=== PATIENT | female | born 1990 | race Caucasian/White ===

== ENCOUNTER 2019-01-03 22:49 | Inpatient (IN) | payer BC ==
[2019-01-03] MEDS ORDERED: Ondansetron 4 MG/2 ML SDV IV PRN (23:27)
[2019-01-03] MEDS ORDERED: Methylergonovine 0.2 MG/1 ML Amp IM PRN (23:27)
[2019-01-03] MEDS ORDERED: Tranexamic Acid 1,000 MG in Sodium Chloride 0.9% 100 ML IV PRN (23:27)
[2019-01-03] MEDS ORDERED: Acetaminophen 325 MG Tab PO PRN (23:27)
[2019-01-03] MEDS ORDERED: Misoprostol 400 MCG (4 X 100 MCG TAB) RECTAL PRN (23:27)
[2019-01-03] MEDS ORDERED: Lactated Ringers 500 ML IV ONE (23:27)
[2019-01-03] MEDS ORDERED: Lidocaine 1% 30 ML SDV INJECT PRN (23:27)
[2019-01-03] MEDS ORDERED: Sodium Chloride 0.9% 10 ML Syringe FLUSH PRN (23:27)
[2019-01-03] MEDS ORDERED: Carboprost Tromethamine 250 MCG/1 ML Amp IM PRN (23:27)
[2019-01-03] MEDS ORDERED: Oxytocin/Normal Saline 30 UNIT/500 ML BAG IV SCH (23:30)
[2019-01-03] MEDS ORDERED: Lactated Ringers 1,000 ML IV SCH (23:30)
[2019-01-04] MEDS ORDERED: Ketorolac 30 MG/ML SDV IVPUSH ONE (01:14)
[2019-01-04] MEDS ORDERED: Carboprost Tromethamine 250 MCG/1 ML Amp IM PRN (01:18)
[2019-01-04] MEDS ORDERED: Misoprostol 400 MCG (4 X 100 MCG TAB) RECTAL PRN (01:18)
[2019-01-04] MEDS ORDERED: Benzocaine/Menthol 20%-0.5% Spray 56 GM Canister TOP PRN (01:18)
[2019-01-04] MEDS ORDERED: Sodium Chloride 0.9% 10 ML Syringe FLUSH PRN (01:18)
[2019-01-04] MEDS ORDERED: Zolpidem 5 MG Tab PO PRN (01:18)
[2019-01-04] MEDS ORDERED: Simethicone 80 MG Tab.Chew PO PRN (01:18)
[2019-01-04] MEDS ORDERED: Oxytocin 10 Units/1 ML SDV IM PRN (01:18)
[2019-01-04] MEDS ORDERED: Tranexamic Acid 1,000 MG in Sodium Chloride 0.9% 100 ML IV PRN (01:18)
[2019-01-04] MEDS ORDERED: Acetaminophen 325 MG Tab PO PRN (01:18)
--- NOTE | 2019-01-04 01:52 | HP ---
CHIEF COMPLAINT: Increasing frequency and intensity of contractions. SUBJECTIVE: HISTORY OF PRESENT ILLNESS: The patient is a 28-year-old 2, para 1 female, presenting at 39 weeks 5 days' gestation with increasing intensity and frequency of contractions. The patient states that at 8:30 p.m., she started noticing contractions. They came on suddenly and have been occurring about every 2 to 3 minutes. The patient states that she has to stop and start to breathe through them, and they have just continued to increase from there. The patient endorses active movement and denies leakage of fluid or vaginal bleeding at this time. The patient does endorse that she has been having some mucousy discharge for the past 2 days and believes this is a mucus plug. The patient has no other symptoms of concern at this time. She denies symptoms of preeclampsia including headache, blurred vision, dizziness, or lightheadedness. PAST MEDICAL HISTORY: The patient denies significant past medical history. PAST : First included a term male infant, born at 39 weeks 4 days' gestation via spontaneous vaginal delivery. A mild shoulder dystocia did occur during that delivery. The patient was 8 pounds 11 ounces. Delivery occurred 2-1/2 years ago. PAST SURGICAL HISTORY: None. FAMILY HISTORY: The patient's family history is positive for type 2 diabetes in the family. The patient's grandmother was also diagnosed with breast cancer in her 80s. SOCIAL HISTORY: The patient originally resided in [place], [place], and recently moved with her , Woodrow, and 1 child to [place], [place]. They are in transition to moving between [place] and [place]. They work as missionaries. Woodrow's medical history is significant for a heart murmur diagnosed at . He has had this worked up as a child with no concerns. REVIEW OF SYSTEMS: Pertinent review of systems stated in HPI. OBJECTIVE: Vital Signs: Temperature 97.7, BP 119/62, and HR 100 beats per minute. General: Awake, alert, lying in bed, in distress due to contractions. HEENT: Grossly normal. Pulmonary: Lungs are clear to auscultation bilaterally. Cardiovascular: Regular rate and rhythm. No murmurs noted. Abdomen: Soft, gravid uterus present. Uterus palpated 21 cm above umbilicus. Cervical: The patient was noted to be 8 cm dilated, 60% effaced, and -1 station. Bulging bag present. Extremities: Trace pedal edema noted bilaterally. No tenderness to palpation of calves bilaterally. Neurologic: Grossly normal. NONSTRESS TEST: Report: Baseline heart rate 130 bpm, reactive. [place]: Contractions noted every 1 to 4 minutes. Interpretation: Category 1 strip. ASSESSMENT: The patient is a 28-year-old 2, para 1 female, presenting in active labor at 39 weeks 5 days' gestation. Anticipate normal progression of her expected progression of labor. PLAN: 1. Initiate routine labor cares. 2. Plans on . 3. Requests no pain medications at this time. The patient was seen and evaluated today by myself and Dr. Sary Ceja. Assessment and plan is under advisement of Dr. Ceja. -Martha Gonzalez, MS-III [facility] /[id number] Patient was personally seen and examined with the medical student. I reviewed the noted scribed on my behalf and necessary changes have been made to reflect my opinion on the history, exam, assessment, and plan. Sary Ceja MD [facility] CENTERMark Anthony
[2019-01-04] MEDS ORDERED: [UNRECOGNIZED DRUG - REMARK] PO SCH (09:00)
[2019-01-04] MEDS: Ibuprofen 800 MG Tab PO PRN ×2 (09:43→22:16)
[2019-01-04] MEDS: Docusate Sodium 100 MG Cap PO PRN ×2 (09:44→22:15)
[2019-01-04] MEDS: Prenatal Multivitamin with Calcium/Folic Acid/Iron Tab PO SCH (09:44)
--- NOTE | 2019-01-04 19:20 | DEL ---
DATE: 01/04/2019 PREPROCEDURE DIAGNOSES: 1. A 39 weeks 6 days' intrauterine . 2. 2, para 1. 3. Rh negative, rubella immune, group B streptococcus negative. 4. History of spontaneous vaginal delivery with mild shoulder dystocia at 39 weeks 4 days' gestation. POSTPROCEDURE DIAGNOSES: 1. A 39 weeks 6 days' intrauterine . 2. 2, para 1. 3. Rh negative, rubella immune, group B streptococcus negative. 4. History of spontaneous vaginal delivery with mild shoulder dystocia at 39 weeks 4 days' gestation. 5. Delivery of a term male via spontaneous vaginal delivery. scores of 8 and 9 at 1 and 5 minutes respectively. weight 8 pounds 11.5 ounces. BRIEF HISTORY: The patient is a 28-year-old 2, para 1 female, who presented to Labor and Delivery in active labor at 39 weeks 5 days' gestation. On admission, the patient denied leakage of fluid or vaginal bleeding. The patient does endorse active movement and increasing intensity and frequency of contractions. The patient states that her contractions began around 2030 and initiating at 2-3 minutes apart with progression of intensity and frequency of contractions. The patient also states she believes she lost her "mucous plug" 2 days prior. The patient states she feels most of her contractions in her lower pelvis and abdomen. Denies any symptoms of preeclampsia including headache, changes in vision, blurred vision, lightheadedness, or dizziness. The patient endorses very mild lower extremity edema. The patient denies any concerns at this time. The patient also wished for a natural delivery with no pain medication or anesthesia. Labor course was brief. The patient was checked at admission around 2300 and was noted to be 8 cm dilated, 60% effaced, -1 station. The patient was then brought to Labor and Delivery room for expectant management of progression of labor. The patient was checked again at 2357 with increased pressure at that time with bulging bag was felt. Artificial rupture of membranes occurred at that time. Clear fluid noted on exam. The patient again felt the urge to push around 0015, was checked at this time, and was noted to have a rim. The patient was then allowed to labor down until cervix had completely dilated. With increasing pressure in the pelvic region, the patient was placed in the dorsal lithotomy position for expectant management of labor. DESCRIPTION OF PROCEDURE: The patient felt the extreme urge to push at 0020 hours. The patient was coached through pushing in total of 7 contractions with 1 period of rest in between toward the beginning of the contraction cycle. With successful pushing during contractions, fetus presented in the MILAN position over an intact perineum. Time of was 0035 hours. Baby was bulb suctioned, stimulated, and placed on mother's chest for initiation of bonding. Body cord x1 draped around shoulders was bluntly reduced upon delivery. A 3-vessel umbilical cord was clamped and cut after a delayed period to allow for cessation of umbilical cord pulsation. With the use of gentle cord traction and concomitant uterine massage, delivery of placenta occurred at 0056 hours. Upon delivery, placenta was inspected and noted to be intact. After delivery of placenta, the labia and vaginal chiu were inspected and a second-degree vaginal laceration was noted. 5 mL of Xylocaine 1% plain was drawn and used to numb the perineum and the laceration was subsequently repaired without complications. The repair was noted to be hemostatic upon finishing of sutures and no concerns were noted. COMPLICATIONS: None. FINDINGS: A viable term male infant with scores of 8 and 9 at 1 and 5 minutes respectively. weight was noted to be 8 pounds 11.5 ounces. ESTIMATED BLOOD LOSS: 450 mL. DISPOSITION: Mother and baby to stay in delivery room at this time to initiate bonding and . ASSESSMENT: The patient is doing well post spontaneous vaginal delivery of a term male . The patient was having extensive uterine contractions and given 30 mg IV Toradol for pain management post delivery. No other concerns at this time. PLAN: 1. Initiate routine cares. 2. . 3. Baby is to remain with mother and father as much as possible to initiate and bonding. Procedure was completed today by myself and Dr. Sary Ceja. Assessment and plan is under the advisement of Dr. Ceja. -Martha Gonzalez MS-III [facility] /[id number] Patient was personally seen and examined with the medical student. I reviewed the noted scribed on my behalf and necessary changes have been made to reflect my opinion on the history, exam, assessment, and plan. Sary Ceja MD [facility]
[2019-01-05] MEDS: Ibuprofen 800 MG Tab PO PRN (08:57)
[2019-01-05] MEDS: Docusate Sodium 100 MG Cap PO PRN (08:58)
[2019-01-05] MEDS: Prenatal Multivitamin with Calcium/Folic Acid/Iron Tab PO SCH (08:58)
--- NOTE | 2019-01-05 11:40 | DISCH ---
ADMITTING DIAGNOSES: 1. 39-week 6-day gestation intrauterine . 2. 2, para 1-0-0-1. 3. Rh negative, rubella immune, group B strep negative. 4. History of spontaneous vaginal delivery with mild shoulder dystocia at 39 weeks' 4 days' gestation with delivery of a term male infant. DISCHARGE DIAGNOSES: 1. 39-week 6-day gestation intrauterine . 2. 2, para 1-0-0-1. 3. Rh negative, rubella immune, group B strep negative. 4. History of spontaneous vaginal delivery with mild shoulder dystocia at 39 weeks' 4 days' gestation with delivery of a term male . 5. Delivery of a term male infant via spontaneous vaginal delivery. scores were 8 and 9 at one and five minutes respectively. weight was 8 pounds 11.5 ounces (3955 g). BRIEF HISTORY: The patient is a 28-year-old 2, para 1-0-0-1 female, who presented to Labor and Delivery in active labor at 39 weeks' 5 days' gestation. On admission, the patient denied leakage of fluid or vaginal bleeding and endorsed active movement. The patient stated that she had been experiencing increasing intensity and frequency of contractions around 2030 and experiencing them about 2-3 minutes apart. The patient denies symptoms of preeclampsia including headache, change in vision, blurred vision, lightheadedness, or dizziness. The patient endorsed mild lower extremity edema. The patient wished for natural delivery with no pain medication or anesthesia. Labor course was brief as the patient was checked on admission and noted to be 8 cm dilated, 60% effaced, -1 station. The patient was admitted and monitored for expectant progression of labor. Artificial rupture of membranes occurred at 2357 with clear fluid noted on exam. The patient then again felt the urge to push around 0015, was checked at that time and noted to have a rim, allowed to labor down until cervix had completely dilated, and at 0020 hours, the patient was coached to pushing and pushed for a total of 7 contractions with 1 period of rest in between. With successful pushing, fetus presented in the MILAN position over an intact perineum. Time of was 0035 hours. Baby was bulb suctioned, stimulated, and placed on mother's chest to initiate bonding. Nuchal cord x1 draped around the shoulders was bluntly reduced upon delivery. Three- vessel umbilical cord was clamped and cut after delayed period to allow for cessation of cord pulsation. Use of gentle cord traction and concomitant uterine massage produced delivery of placenta around 0056 hours. Upon delivery, the labia and vagina were inspected and noted to have a second-degree vaginal laceration. This was repaired with 5 mL of Xylocaine 1% plain and suture. The perineum was repaired without complications and repair was noted to be hemostatic. Please see history and physical/delivery note for further details. HOSPITAL COURSE: Good. The patient has done well in state. She has been ambulating, tolerating general diet, urinating, and stooling appropriately. The patient does feel sore, especially with . This is expected, and the patient has no concerns. She wishes for discharge home at this time. DISCHARGE CONDITION: Good. DISCHARGE PHYSICAL EXAMINATION: Vital Signs: Temperature 98.4, HR 80 beats per minute, BP 116/57, RR 16 breaths per minute, and oxygen saturation 98% on room air. General: The patient is awake, alert, lying in bed, in no acute distress. HEENT: Grossly normal. Pulmonary: Lungs are clear to auscultation bilaterally with no increased work of breathing noted. Cardiovascular: Regular rate and rhythm. No murmurs noted. Abdomen: Soft. Mildly tender to palpation. Normoactive bowel sounds auscultated. Firm uterine fundus palpated at the level of umbilicus. Extremities: Trace pedal edema noted bilaterally. No tenderness to palpation of calves bilaterally. Neurologic: Grossly normal. DISCHARGE LABORATORY RESULTS: Hematology; WBC 10.8, RBC 3.81, hemoglobin 11.7, hematocrit 34.5, and platelet count 132. DISCHARGE MEDICATIONS: None prescribed. The patient was encouraged to continue her routine vitamins as well as [id number] pain medications including Tylenol and ibuprofen as needed for pain and swelling. DISPOSITION: Home with family. FOLLOWUP: The patient was seen and advised to see Dr. Sary Ceja for 6- week followup in clinic. The patient was advised to call the clinic to schedule this appointment. She is also encouraged to attend baby's first well-child check on 01/10/2019. If any questions or concerns arise prior to that visit, mother is encouraged to call either the clinic or Labor and Delivery. The patient was seen and evaluated today by myself and Dr. Sary Ceja. Assessment and plan are under advisement of Dr. Ceja. [facility] /[id number] Patient was personally seen and examined with the medical student. I reviewed the noted scribed on my behalf and necessary changes have been made to reflect my opinion on the history, exam, assessment, and plan. Sary Ceja MD [facility]
== END 2019-01-05 18:05 | disposition home or self-care (01) | DRG 560 ==
LOC: DL.OBCHECK 22:49 → DL.OB 23:27 → UNDOADMOB 23:34 → DL.OB 23:34 → OBSVTOIN 01-04 00:35
PROVIDERS: ADMIT Family Medicine; ATTEND Family Medicine
PROC: 10E0XZZ Delivery of Products of Conception, External Approach (ICD-10-PCS; principal; 2019-01-04)
PROC: 4A1HXCZ Monitoring of Products of Conception, Cardiac Rate, External Approach (ICD-10-PCS; 2019-01-04)
PROC: 10907ZC Drainage of Amniotic Fluid, Therapeutic from Products of Conception, Via Natural or Artificial Opening (ICD-10-PCS; 2019-01-04)
PROC: 0KQM0ZZ Repair Perineum Muscle, Open Approach (ICD-10-PCS; 2019-01-04)
DX: O70.1 Second degree perineal laceration during delivery (principal); Z3A.39 39 weeks gestation of pregnancy; Z37.0 Single live birth; O69.81X0 Labor and delivery complicated by cord around neck, without compression, not applicable or unspecified
CPT/HCPCS: 36415; 59409; 85027; 85461; 86850; 86900; 86901; A9270-GY; J1885; J2001; J2590; J2790; J7120

== ENCOUNTER 2021-07-19 13:21 | Emergency (ER) | payer SELFPAY ==
[2021-07-19 15:04] LABS: CORONAVIRUS COVID-19 NAA NEGATIVE (NEGATIVE)
--- NOTE | 2021-07-19 15:39 | EDM.PDOC ---
ED HPI GENERAL MEDICAL PROBLEM - General Chief Complaint: General Stated Complaint: WANTS TEST FOR STREP THROAT / TEMP 96.7 Time Seen by Provider: 07/19/21 14:20 Source of Information: Reports: Patient, RN, RN Notes Reviewed History Limitations: Reports: No Limitations - History of Present Illness INITIAL COMMENTS - FREE TEXT/NARRATIVE: Pt presents to ER with c/o several days of sore throat. On the first couple of days of symptoms pt reports having fevers. Last night her right eye became irritated and she woke with yellow matting. Denies cough, N/V/D, or rash. Onset: Sudden Duration: Constant Location: Reports: Other (EENT) Quality: Reports: Ache Severity: Moderate Improves with: Reports: None Worsens with: Reports: None Associated Symptoms: Reports: No Other Symptoms - Related Data Allergies Allergy/AdvReac Type Severity Reaction Status Date / Time No Known Allergies Allergy Verified 07/19/21 14:14 Home Meds: Home Meds #103/Iron Fumarate/Fa [ ] 1 tab PO DAILY 01/04/19 [History] Past Medical History - Past Health History Medical/Surgical History: Denies Medical/Surgical History [employer] History: Reports: Social & Family History - Family History Family Medical History: No Pertinent Family History - Tobacco Use Tobacco Use Status *Q: Never Tobacco User - Caffeine Use Caffeine Use: Reports: None - Recreational Drug Use Recreational Drug Use: No - Living Situation & Occupation Living situation: Reports: , with Family ED ROS GENERAL - Review of Systems Review Of Systems: Comprehensive ROS is negative, except as noted in HPI. ED EXAM, GENERAL - Physical Exam Exam: See Below Exam Limited By: No Limitations General Appearance: Alert, WD/WN, No Apparent Distress Eye Exam: Right Eye: Other (Rt conjunctival injection with yellow matting), Bilateral Eye: EOMI, PERRL Ears: Normal External Exam, Normal Canal, Hearing Grossly Normal, Normal TMs Nose: Nasal Drainage Throat/Mouth: Normal Lips, Normal Voice, No Airway Compromise, Other (Moderate tonsillar swelling with erythema and exudates) Head: Atraumatic, Normocephalic Neck: Non-Tender, Full Range of Motion, Other ([place]oddy cervical lymphadenopathy) Respiratory/Chest: No Respiratory Distress, Lungs Clear, Normal Breath Sounds, No Accessory Muscle Use, Chest Non-Tender Cardiovascular: Regular Rate, Rhythm Neurological: Alert, Oriented, No Motor/Sensory Deficits Psychiatric: Normal Mood Skin Exam: Warm, Dry, Intact, Normal Color, No Rash Course - Vital Signs Last Recorded V/S: Last Vital Signs Temp 98 F 07/19/21 14:11 Pulse Resp BP Pulse Ox - Orders/Labs/Meds Orders: Active Orders 24 hr Category Date Time Status CULTURE STREP A CONFIRMATION [] Stat Lab 07/19/21 13:40 Results STREP SCRN A RAPID W CULT CONF [] Stat Lab 07/19/21 13:40 Results Labs: Laboratory Tests 07/19/21 Range/Units 13:40 Influenza Type A RNA Negative (NEGATIVE) Influenza Type B RNA Negative (NEGATIVE) SARS-CoV-2 RNA (FAITH) Negative (NEGATIVE) Meds: Medications Discontinued Medications Generic Name Dose Route Start Last Admin Trade Name Freq PRN Reason Stop Dose Admin Azithromycin 500 mg 07/19/21 15:45 Azithromycin 250 Mg Tab PO 07/19/21 15:46 ONETIME ONE Gentamicin Sulfate 1 ml 07/19/21 15:46 Gentamicin 0.3% Ophth Soln 5 Ml Bottle EYERT 07/19/21 15:47 ONETIME ONE Departure - Departure Time of Disposition: 15:47 Disposition: Home, Self-Care 01 Condition: Good Clinical Impression: Bacterial conjunctivitis of right eye Acute tonsillitis Qualifiers: Pharyngitis/tonsillitis etiology: other specified organisms Qualified Code(s): J03.80 - Acute tonsillitis due to other specified organisms URI (upper respiratory infection) Qualifiers: URI type: acute pharyngitis Pharyngitis/tonsillitis etiology: other specified organisms Qualified Code(s): J02.8 - Acute pharyngitis due to other specified organisms - Discharge Information *PRESCRIPTION DRUG MONITORING PROGRAM REVIEWED*: Not Applicable *COPY OF PRESCRIPTION DRUG MONITORING REPORT IN PATIENT CLAUDE: Not Applicable Instructions: Upper Respiratory Infection, Adult, Tonsillitis, Bacterial Conjunctivitis, Adult Forms: ED Department Discharge Additional Instructions: Rx: Zithromax 500mg Gentamicin Ophthalmic Solution 0.3% one drop in affected eye(s) 4 times a day for five days. Frequent saltwater gargles until sore throat resolves. Follow up in clinic if not improving as expected. Sepsis Event Note (ED) - Focused Exam Vital Signs: Vital Signs Temp 07/19/21 14:11 98 F - My Orders Last 24 Hours: My Active Orders 07/19/21 13:40 CULTURE STREP A CONFIRMATION [RM] Stat STREP SCRN A RAPID W CULT CONF [RM] Stat - Assessment/Plan Last 24 Hours: My Active Orders 07/19/21 13:40 CULTURE STREP A CONFIRMATION [RM] Stat STREP SCRN A RAPID W CULT CONF [RM] Stat
[2021-07-19] MEDS ORDERED: Azithromycin 250 MG Tab PO ONE (15:45)
[2021-07-19] MEDS ORDERED: Gentamicin 0.3% Ophth Soln 5 ML Bottle EYERT ONE (15:46)
== END 2021-07-19 16:05 | disposition home or self-care (01) ==
LOC: DL.ED 13:21
DX: J02.8 Acute pharyngitis due to other specified organisms (principal); H10.9 Unspecified conjunctivitis; Z20.822 Contact with and (suspected) exposure to COVID-19
CPT/HCPCS: 0240U; 87081; 87430; 99283; A9270